=== PATIENT | male | born 2000 | race Caucasian/White ===

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

== ENCOUNTER 2021-06-06 22:15 | Emergency (ER) | payer OTHER ==
[~2021-06-06] VITALS: Ht 177.8 cm; Wt 122.5 kg
[2021-06-06 22:25] VITALS: BP 133/90
--- NOTE | 2021-06-06 22:28 | NUR ---
TO LOBBY A/W BED AMBULATORY
== END 2021-06-07 01:49 | disposition left against medical advice (07) ==
LOC: MED 22:15
DX: S91.332A Puncture wound without foreign body, left foot, initial encounter (principal); Z53.21 Procedure and treatment not carried out due to patient leaving prior to being seen by health care provider; W45.0XXA Nail entering through skin, initial encounter; Y93.89 Activity, other specified; Y92.89 Other specified places as the place of occurrence of the external cause; Y99.8 Other external cause status